=== PATIENT | male | born 1955 ===

== ENCOUNTER → 2018-09-28 | Day surgery (SDC) | payer OTHER ==
[~2018-09-28] VITALS: Ht 180.3 cm; Wt 117.5 kg
[~2018-09-28] MED LIST: ATOR40TA69 PO; LEVO75TA68 PO; LIDOCAINE MPF 1% 5 ML VIAL ONE; LIDOCAINE/SOD BICARB 8.4% SYR ID ONE; METF-450 PO; METF-452 PO; NORMOSOL R SOLN(*) 1000 ML BAG 1,000 ML IV PRN; PROPOFOL EMUL(*) 10MG/ML 20 ML 60 ML ONE
[2018-09-28 10:47] VITALS: BP 128/84
[2018-09-28 11:40] VITALS: BP 101/71
[2018-09-28 12:03] VITALS: BP 127/73
--- NOTE | 2018-09-28 12:05 | NUR ---
1205-PT TRIALED ON ROOM AIR. WAKES SPONTANEOUSLY. PT GIVEN WATER TO DRINK AT THIS TIME
--- NOTE | 2018-09-28 12:10 | NUR ---
1210- AR REPORT FROM Fahad HAMPTON 1212- SL IV, NO S/S OF INFILTRATION, PT A/O X 3, PT TOLERATING WATER, PT DENIES FOOD AT THIS TIME
[2018-09-28 12:15] VITALS: BP 137/90
--- NOTE | 2018-09-28 12:21 | NUR ---
1221- REVIEWED D/C INSTRUCTIONS WITH PT
--- NOTE | 2018-09-28 12:21 | NUR ---
1221- SITTING VSS, PT REPORTS MINIMAL DIZZINESS 1226- STANDING VSS, PT REPORTS FEELING GROGGY 1227- PT AMBULATORY TO RESTROOM, STEADY GAIT NOTED
[2018-09-28 12:22] VITALS: BP 147/95
[2018-09-28 12:26] VITALS: BP 143/87
--- NOTE | 2018-09-28 12:35 | NUR ---
1235- PT BACK FROM RESTROO, REPORTS VOID X 1 WITHOUT ISSUE, PT DRESSED
--- NOTE | 2018-09-28 12:37 | NUR ---
1237- D/C IV WITH CATH INTACT, PT TOLERATED WELL, PRESSURE DRESSING APPLIED WITH ALONZO AND SHELBY 1240- PT AMBULATORY TO LOBBY AND ACCOMPANIED BY FRIEND.
== END ==
LOC: OR 01:22
PROVIDERS: ATTEND Family Medicine
DX: Z12.11 Encounter for screening for malignant neoplasm of colon (principal)
CPT/HCPCS: 00812; 45378; J2001; J2704